=== PATIENT | female | born 1995 | race Two or more races ===

== ENCOUNTER 2022-03-20 03:21 | Emergency (ER) | payer OTHER ==
[~2022-03-20] VITALS: Ht 157.5 cm; Wt 63.5 kg
--- NOTE | 2022-03-20 04:25 | NUR ---
A/O x3. NAD noted. Ambulatory with steady gate.
--- NOTE | 2022-03-20 04:55 | NUR ---
Dr. Lopez at bedside. MSE in progress.
[2022-03-20] MEDS ORDERED: SULF1TAB48 PO (05:19)
[2022-03-20] MEDS ORDERED: CLOT15CR27 TP (05:19)
--- NOTE | 2022-03-20 05:24 | NUR ---
Patient discharged to home in stable condition. A/O x4. NAD noted. All belongings with patient. Written and verbal after care instructions given. Patient verbalizes understanding of instructions. Stressed follow up or return to ER for worsening s/s.
[2022-03-20 05:28] VITALS: BP 129/83
== END 2022-03-20 05:24 | disposition home or self-care (01) ==
LOC: ER 03:43
DX: B35.3 Tinea pedis (principal); L03.116 Cellulitis of left lower limb; L03.115 Cellulitis of right lower limb; F17.210 Nicotine dependence, cigarettes, uncomplicated
CPT/HCPCS: A4663